=== PATIENT | male | born 1965 | race Hispanic/Latino ===

== ENCOUNTER 2022-05-21 22:17 | Inpatient (IN) | payer SELFPAY ==
[2022-05-21 22:47] LABS: #Basophils 0.1 thou/uL (0.0-0.2); #Eosinphils 0.1 thou/uL (0.0-0.7); #Lymphocytes 2.2 thou/uL (1.20-3.40); #Monocytes 0.6 thou/uL (0.11-0.59); #Neutrophils 5.4 thou/uL (1.40-6.50); %Basophils 0.7 % (0.0-1.0); %Eosinophils 1.8 % (0.0-10.0); %Lymphocytes 26.6 % (21.0-51.0); %Monocytes 6.8 % (0.0-10.0); %Neutrophils 64.2 % (42.0-75.0); Mean Corpuscular Hemoglobin 36.4 pg (27.0-31.0); Mean Platelet Volume 6.9 fL (7.4-10.4); Platelet Count 103 10x3/uL (130-400); RBC Distribution Width 13.9 % (11.5-14.5); Red Blood Cell (RBC) Count 3.58 mill/uL (4.70-6.10); White Blood Cell (WBC) Count 8.4 10x3/uL (4.8-10.8)
[2022-05-21 22:49] LABS: Bacteria/HPF None Seen HPF (None Seen); Bilirubin 1+ (Negative); Blood, Urine Negative (Negative); Clarity Turbid (Clear); Glucose, Urine (Dipstick) Normal (Negative); Ketone, Urine 10 mg/dL (Negative); Leukocyte 75 Leu/uL (Negative); Nitrite Negative (Negative); Protein, Urine (Dipstick) 50 mg/dL (Neg-Trace); RBC/HPF 0-3 HPF (0-3); Specific Gravity, Urine 1.037 (1.002-1.036); Urobilinogen 12 mg/dL (Less than 2)
[2022-05-21 23:04] LABS: ALT (SGPT) 19 U/L (8-55); AST (SGOT) 50 U/L (5-34); Albumin 2.4 g/dL (3.5-5.0); Alkaline Phosphatase 147 U/L (40-110); Anion Gap 14 mmol/L (10-20); BUN (Urea Nitrogen) 10 mg/dL (8.4-25.7); Calc. Creatinine Clearance 0 mL/min (70-130); Calcium 8.3 mg/dL (7.8-10.44); Carbon Dioxide 23 mmol/L (22-29); Chloride 105 mmol/L (98-107); Estimated GFR 108; Globulin 4.3 g/dL (2.4-3.5); Glucose 90 mg/dL (70-105); Potassium 3.7 mmol/L (3.5-5.1); Protein, Total 6.7 g/dL (6.0-8.3); Sodium 138 mmol/L (136-145)
[2022-05-22] MEDS ORDERED: Thiamine 100 MG TAB PO SCH (01:15)
[2022-05-22] MEDS ORDERED: Furosemide 20 MG TAB PO SCH (01:30)
[2022-05-22] MEDS ORDERED: Spironolactone 25 MG TAB PO SCH ×2 (01:30→12:45)
[2022-05-22] MEDS ORDERED: Furosemide 40 MG TAB ONE (01:49)
[2022-05-22 01:54] LABS: INR-International Normal Ratio 1.5; Prothrombin Time 18.4 sec (12.0-14.7)
[2022-05-22 01:55] LABS: PTT 37.2 sec (22.9-36.1)
[2022-05-22 02:03] LABS: Phosphorus 3.4 mg/dL (2.3-4.7)
[2022-05-22 02:05] LABS: Cardiac Risk 4.9 (Less than 4.5); Cholesterol 188 mg/dl (< 200 Desired); HDL Cholesterol 38 mg/dL (>60 Neg Risk); LDL Cholesterol, Calculated 130 mg/dL; Magnesium 1.9 mg/dL (1.6-2.6); Triglycerides 100 mg/dL (Less than 150)
[2022-05-22 02:25] LABS: HBCM Index 0.16 S/CO (0-0.79); HBSAg Index 0.31 S/CO (0-0.99); HIV (1/2) Antibody/Antigen Non-Reactive (NonReactive); HIV 1/2 INDEX 0.18 S/CO (<1.00); Hep A IgM AB Non-Reactive (NonReactive); Hep A IgM S/CO 0.33 S/CO (0-0.79); Hep B Surf Ag Non-Reactive S/CO (NonReactive); Hep C IgG Ab Non-Reactive (NonReactive); Hep C Index 0.17 S/CO (0-0.79); Hepatitis B Core IgM Abs Non-Reactive (NonReactive)
[2022-05-22 05:11] VITALS: BMI 31.4
[2022-05-22 05:42] LABS: Amphetamine Not Detected (NotDetected); Barbiturates Screen Not Detected (NotDetected); Benzodiazepine Screen Not Detected (NotDetected); Cocaine Metabolite Screen Not Detected (NotDetected); Methadone Not Detected (NotDetected); Methamphetamine Not Detected (NotDetected); Opiate Screen Not Detected (NotDetected); Oxycodone Screen Not Detected (NotDetected); Phencyclidine (PCP) Not Detected (NotDetected); THC/Cannabinoid Screen Not Detected (NotDetected); Tricyclic Screen Not Detected (NotDetected)
[2022-05-22 07:10] LABS: Hemoglobin 11.8 g/dL (14.0-18.0); Mean Corpuscular HGB CONC 33.4 g/dL (32.0-36.0); Mean Platelet Volume 7.2 fL (7.4-10.4); Platelet Count 88 10x3/uL (130-400); RBC Distribution Width 13.9 % (11.5-14.5); Red Blood Cell (RBC) Count 3.29 mill/uL (4.70-6.10); White Blood Cell (WBC) Count 5.6 10x3/uL (4.8-10.8)
[2022-05-22 07:11] LABS: #Eosinphils 0.1 thou/uL (0.0-0.7); #Lymphocytes 1.4 thou/uL (1.20-3.40); #Monocytes 0.4 thou/uL (0.11-0.59); #Neutrophils 3.7 thou/uL (1.40-6.50); %Basophils 0.6 % (0.0-1.0); %Eosinophils 2.6 % (0.0-10.0); %Lymphocytes 24.4 % (21.0-51.0); %Monocytes 7.4 % (0.0-10.0); %Neutrophils 65.1 % (42.0-75.0)
[2022-05-22 07:27] LABS: ALT (SGPT) 16 U/L (8-55); AST (SGOT) 44 U/L (5-34); Albumin 1.7 g/dL (3.5-5.0); Alkaline Phosphatase 119 U/L (40-110); Anion Gap 9 mmol/L (10-20); BUN (Urea Nitrogen) 9 mg/dL (8.4-25.7); Bilirubin, Total 3.6 mg/dL (0.2-1.2); Calc. Creatinine Clearance 186 mL/min (70-130); Calcium 7.9 mg/dL (7.8-10.44); Carbon Dioxide 26 mmol/L (22-29); Chloride 106 mmol/L (98-107); Estimated GFR 112; Globulin 3.8 g/dL (2.4-3.5); Glucose 88 mg/dL (70-105); Protein, Total 5.5 g/dL (6.0-8.3); Sodium 137 mmol/L (136-145)
[2022-05-22 08:06] LABS: MDiff Complete? YES; Platelet Morphology Comment Appears Decreased; Polychromasia SLIGHT = 2-3 cells (100X) (0-2/hpf)
[2022-05-22 09:31] LABS: Hemoglobin A1c 4.3 % (4.0-6.0)
[2022-05-22] MEDS: Folic Acid 1 MG TAB PO SCH (09:38)
[2022-05-22] MEDS: Thiamine 100 MG TAB PO SCH (09:38)
[2022-05-22] MEDS: Multivit, Therapeutic 1 TAB PO SCH (09:38)
[2022-05-22 11:02] LABS: Syphilis Antibody Nonreactive (Nonreactive); Syphilis Antibody Index 0.17 S/CO (<1.00 Non-Reactive)
[2022-05-22 11:50] LABS: Creatinine, Urine 87.53 mg/dL (63-166); Protein, Urine Random Quant Less than 10 mg/dL (1-14)
[2022-05-22] MEDS: Albumin 25% 25 GM/100 ML BOT IVPB SCH ×3 (12:26→23:10)
[2022-05-22] MEDS ORDERED: Furosemide 20 MG/2 ML VIAL SLOW IVP SCH (12:45)
[2022-05-23] MEDS: Albumin 25% 25 GM/100 ML BOT IVPB SCH (05:22)
[2022-05-23 06:37] LABS: #Eosinphils 0.2 thou/uL (0.0-0.7); #Lymphocytes 1.6 thou/uL (1.20-3.40); #Monocytes 0.4 thou/uL (0.11-0.59); #Neutrophils 3.1 thou/uL (1.40-6.50); %Basophils 0.8 % (0.0-1.0); %Eosinophils 4.2 % (0.0-10.0); %Monocytes 7.6 % (0.0-10.0); %Neutrophils 57.3 % (42.0-75.0); Hemoglobin 10.1 g/dL (14.0-18.0); Mean Corpuscular HGB CONC 34.1 g/dL (32.0-36.0); Mean Corpuscular Hemoglobin 36.5 pg (27.0-31.0); Platelet Count 80 10x3/uL (130-400); RBC Distribution Width 13.7 % (11.5-14.5); Red Blood Cell (RBC) Count 2.77 mill/uL (4.70-6.10); White Blood Cell (WBC) Count 5.4 10x3/uL (4.8-10.8)
[2022-05-23 06:57] LABS: Iron 94 ug/dL (65-175); Iron Binding Capacity, Total 85 mcg/dL (261-462)
[2022-05-23 06:58] LABS: ALT (SGPT) 12 U/L (8-55); AST (SGOT) 32 U/L (5-34); Albumin 2.6 g/dL (3.5-5.0); Alkaline Phosphatase 92 U/L (40-110); Anion Gap 9 mmol/L (10-20); BUN (Urea Nitrogen) 8 mg/dL (8.4-25.7); Bilirubin, Total 3.2 mg/dL (0.2-1.2); Calc. Creatinine Clearance 183 mL/min (70-130); Calcium 8.2 mg/dL (7.8-10.44); Carbon Dioxide 26 mmol/L (22-29); Chloride 106 mmol/L (98-107); Estimated GFR 112; Globulin 2.7 g/dL (2.4-3.5); Glucose 78 mg/dL (70-105); Iron 94 ug/dL (65-175); Iron Binding Capacity, Total 83 mcg/dL (261-462); Potassium 3.4 mmol/L (3.5-5.1); Protein, Total 5.3 g/dL (6.0-8.3); Sodium 138 mmol/L (136-145)
[2022-05-23] MEDS: Multivit, Therapeutic 1 TAB PO SCH (09:44)
[2022-05-23] MEDS: Folic Acid 1 MG TAB PO SCH (09:44)
[2022-05-23] MEDS: Thiamine 100 MG TAB PO SCH (09:44)
[2022-05-23] MEDS: Furosemide 20 MG TAB PO SCH (09:44)
[2022-05-23] MEDS: Spironolactone 25 MG TAB PO SCH (09:45)
[2022-05-23 14:00] LABS: ANA Symphony (Qualitative) Equivocal: See Note (Negative); ANA Symphony (Quantitative) 0.9 Ratio (< 0.7 Negative); EliA Vaculitis New Method **** NEW METHOD ****; Mitochondrial Ab 2.1 U/mL (<4 Negative)
[2022-05-23] MEDS ORDERED: Lidocaine 1% PF 5 ML VIAL ONE (14:20)
[2022-05-23] MEDS ORDERED: Sodium Bicarbonate 2.5 MEQ/5 ML VIAL ONE (14:20)
[2022-05-23 15:42] LABS: RBC Count-Automated (BF) 0 /cu.mm; WBC/Nucleated-Auto (BF) 335 /cu.mm
[2022-05-23 16:43] LABS: BF Color Yellow; Body Fluid Source Ascites Body Fluid; Clarity Clear (Clear); Tube # EDTA
[2022-05-23 16:44] LABS: BF Segmented Neutrophils 17 %; Cell Count Non Hematic 60 %; Lymphocytes 23 %
[2022-05-24] MEDS: Thiamine 100 MG TAB PO SCH (08:31)
[2022-05-24] MEDS: Multivit, Therapeutic 1 TAB PO SCH (08:31)
[2022-05-24] MEDS: Furosemide 20 MG TAB PO SCH (08:31)
[2022-05-24] MEDS: Folic Acid 1 MG TAB PO SCH (08:31)
[2022-05-24] MEDS: Spironolactone 25 MG TAB PO SCH (08:32)
[2022-05-24 08:48] LABS: ALT (SGPT) 12 U/L (8-55); AST (SGOT) 33 U/L (5-34); Albumin 2.1 g/dL (3.5-5.0); Alkaline Phosphatase 93 U/L (40-110); Anion Gap 8 mmol/L (10-20); BUN (Urea Nitrogen) 7 mg/dL (8.4-25.7); Bilirubin, Total 3.3 mg/dL (0.2-1.2); Calc. Creatinine Clearance 195 mL/min (70-130); Calcium 8.1 mg/dL (7.8-10.44); Carbon Dioxide 26 mmol/L (22-29); Chloride 108 mmol/L (98-107); Estimated GFR 114; Globulin 2.6 g/dL (2.4-3.5); Glucose 78 mg/dL (70-105); Potassium 3.7 mmol/L (3.5-5.1); Protein, Total 4.7 g/dL (6.0-8.3); Sodium 138 mmol/L (136-145)
[2022-05-24 09:27] LABS: #Eosinphils 0.2 thou/uL (0.0-0.7); #Monocytes 0.5 thou/uL (0.11-0.59); #Neutrophils 3.3 thou/uL (1.40-6.50); %Basophils 0.8 % (0.0-1.0); %Eosinophils 3.8 % (0.0-10.0); %Lymphocytes 33.4 % (21.0-51.0); %Monocytes 8.1 % (0.0-10.0); %Neutrophils 53.9 % (42.0-75.0); Hemoglobin 10.6 g/dL (14.0-18.0); Mean Corpuscular Hemoglobin 36.6 pg (27.0-31.0); Mean Platelet Volume 7.4 fL (7.4-10.4); Platelet Count 72 10x3/uL (130-400); RBC Distribution Width 13.8 % (11.5-14.5); Red Blood Cell (RBC) Count 2.89 mill/uL (4.70-6.10)
[2022-05-24 17:27] VITALS: BP 96/63; TEMP 97.8
== END 2022-05-24 17:40 | disposition home or self-care (01) | DRG 434 ==
LOC: ERS 22:17 → ERHOLD 05-22 00:14 → INTOOBSV 05-22 00:14 → T4-A 05-22 05:08 → OBSVTOIN 05-22 17:13
PROVIDERS: ADMIT Family Medicine; ATTEND Family Medicine
PROC: 0W9G3ZZ Drainage of Peritoneal Cavity, Percutaneous Approach (ICD-10-PCS; principal; 2022-05-23)
DX: K70.31 Alcoholic cirrhosis of liver with ascites (principal); Z20.822 Contact with and (suspected) exposure to COVID-19; D69.6 Thrombocytopenia, unspecified; F17.210 Nicotine dependence, cigarettes, uncomplicated
CPT/HCPCS: 36415; 49083; 76705; 80053; 80061; 80074; 80306; 80307; 81003; 81015; 81256; 82042; 82103; 82105; 82390; 82570; 82728; 83036; 83516; 83540; 83550; 83735; 83880; 84100; 84156; 84157; 84484; 85025; 85060; 85610; 85730; 86015; 86038; 86225; 86780; 87070; 87205; 87389; 88112; 88305; 89051; 93005; 94760; 96374; 96375; G0378; J1940; P9047

== ENCOUNTER 2022-08-13 17:37 | Inpatient (IN) | payer SELFPAY ==
[2022-08-13 18:43] LABS: #Basophils 0.1 thou/uL (0.0-0.2); #Eosinphils 0.1 thou/uL (0.0-0.7); #Monocytes 0.7 thou/uL (0.11-0.59); #Neutrophils 5.8 thou/uL (1.40-6.50); %Basophils 0.7 % (0.0-1.0); %Eosinophils 1.1 % (0.0-10.0); %Lymphocytes 20.7 % (21.0-51.0); %Monocytes 7.8 % (0.0-10.0); %Neutrophils 69.1 % (42.0-75.0); Hemoglobin 12.4 g/dL (14.0-18.0); Mean Corpuscular HGB CONC 35.6 g/dL (32.0-36.0); Mean Corpuscular Volume 101.2 fl (78.0-98.0); Mean Platelet Volume 8.8 fL (7.4-10.4); Platelet Count 112 10x3/uL (130-400); Red Blood Cell (RBC) Count 3.44 mill/uL (4.70-6.10); White Blood Cell (WBC) Count 8.3 10x3/uL (4.8-10.8)
[2022-08-13 18:57] LABS: ALT (SGPT) 27 U/L (8-55); AST (SGOT) 56 U/L (5-34); Alkaline Phosphatase 192 U/L (40-110); Anion Gap 9 mmol/L (10-20); BUN (Urea Nitrogen) 13 mg/dL (8.4-25.7); Calc. Creatinine Clearance 0 mL/min (70-130); Calcium 8.4 mg/dL (7.8-10.44); Carbon Dioxide 25 mmol/L (22-29); Chloride 101 mmol/L (98-107); Estimated GFR 103; Globulin 4.3 g/dL (2.4-3.5); Glucose 149 mg/dL (70-105); Potassium 3.9 mmol/L (3.5-5.1); Protein, Total 6.3 g/dL (6.0-8.3); Sodium 131 mmol/L (136-145)
[2022-08-13 19:01] LABS: Acetaminophen Less than 10 mcg/mL (10.0-30.0); Alcohol Less than 10.0 mg/dL (Less than 10); Lipase 72 U/L (8-78); Salicylate Less than 8.0 mg/dL (15.0-30.0)
[2022-08-13] MEDS ORDERED: Albumin 25% 25 GM/100 ML BOT IVPB SCH (22:30)
[2022-08-13] MEDS ORDERED: Lactulose 10 GM/15 ML Oral Solution PR SCH (22:30)
[2022-08-13 23:35] LABS: Lactic Acid 2.6 mmol/L (0.5-2.2)
[2022-08-13] MEDS ORDERED: Ondansetron PF 4 MG/2 ML Vial IVP PRN (23:45)
[2022-08-13] MEDS ORDERED: Ondansetron ODT 4 MG TAB SL PRN (23:45)
[2022-08-13] MEDS ORDERED: Acetaminophen 325 MG TAB PO PRN (23:45)
[2022-08-14 00:12] VITALS: BMI 40.6
[2022-08-14] MEDS ORDERED: Acetaminophen 500 MG TAB PO PRN (03:42)
[2022-08-14] MEDS ORDERED: cefTRIAXone\\ROCEPHIN 1 GM in Sodium Chloride 0.9% 100 ML IVPB SCH (04:00)
[2022-08-14] MEDS: Furosemide 20 MG/2 ML VIAL SLOW IVP SCH ×2 (04:45→14:32)
[2022-08-14 06:23] LABS: #Basophils 0.1 thou/uL (0.0-0.2); #Eosinphils 0.1 thou/uL (0.0-0.7); #Monocytes 0.7 thou/uL (0.11-0.59); #Neutrophils 5.6 thou/uL (1.40-6.50); %Basophils 0.9 % (0.0-1.0); %Eosinophils 1.4 % (0.0-10.0); %Lymphocytes 19.3 % (21.0-51.0); %Monocytes 8.5 % (0.0-10.0); %Neutrophils 69.3 % (42.0-75.0); Hemoglobin 12.5 g/dL (14.0-18.0); Mean Corpuscular HGB CONC 34.2 g/dL (32.0-36.0); Mean Corpuscular Hemoglobin 35.7 pg (27.0-31.0); Mean Corpuscular Volume 104.3 fl (78.0-98.0); Mean Platelet Volume 9.1 fL (7.4-10.4); Platelet Count 95 10x3/uL (130-400); RBC Distribution Width 15.1 % (11.5-14.5); White Blood Cell (WBC) Count 8.1 10x3/uL (4.8-10.8)
[2022-08-14 06:39] LABS: Anion Gap 11 mmol/L (10-20); BUN (Urea Nitrogen) 10 mg/dL (8.4-25.7); Calc. Creatinine Clearance 229 mL/min (70-130); Calcium 8.1 mg/dL (7.8-10.44); Carbon Dioxide 22 mmol/L (22-29); Chloride 105 mmol/L (98-107); Estimated GFR 111; Glucose 116 mg/dL (70-105); Potassium 3.9 mmol/L (3.5-5.1); Sodium 134 mmol/L (136-145)
[2022-08-14] MEDS: Folic Acid 1 MG TAB PO SCH (08:12)
[2022-08-14] MEDS: Thiamine 100 MG TAB PO SCH (08:12)
[2022-08-14] MEDS: Multivitamin W/ Minerals 1 TAB PO SCH (08:12)
[2022-08-14] MEDS: Spironolactone 25 MG TAB PO SCH (08:12)
[2022-08-14 10:10] LABS: INR-International Normal Ratio 1.7; Prothrombin Time 20.4 sec (12.0-14.7)
[2022-08-14] MEDS ORDERED: Lidocaine 1% PF 5 ML VIAL ONE (10:33)
[2022-08-14] MEDS ORDERED: Sodium Bicarbonate 2.5 MEQ/5 ML VIAL ONE (10:33)
[2022-08-14 14:31] LABS: RBC Count-Automated (BF) 615 /cu.mm; WBC/Nucleated-Auto (BF) 68 /cu.mm
[2022-08-14 14:35] LABS: Body Fluid Source Ascites Body Fluid; Clarity Hazy (Clear); Tube # EDTA
[2022-08-14 14:36] LABS: BF Color Yellow
[2022-08-14 15:09] LABS: BF Segmented Neutrophils 14 %; Cell Count Non Hematic 56 %; Lymphocytes 30 %
[2022-08-14] MEDS ORDERED: Meropenem 1 GM in Sodium Chloride 0.9% 100 ML IVPB SCH (21:00)
[2022-08-15 05:54] LABS: #Basophils 0.1 thou/uL (0.0-0.2); #Eosinphils 0.1 thou/uL (0.0-0.7); #Monocytes 0.8 thou/uL (0.11-0.59); #Neutrophils 5.4 thou/uL (1.40-6.50); %Basophils 0.7 % (0.0-1.0); %Eosinophils 1.2 % (0.0-10.0); %Lymphocytes 20.5 % (21.0-51.0); %Monocytes 9.9 % (0.0-10.0); %Neutrophils 67.3 % (42.0-75.0); Hemoglobin 11.8 g/dL (14.0-18.0); Mean Corpuscular HGB CONC 34.5 g/dL (32.0-36.0); Mean Corpuscular Hemoglobin 34.9 pg (27.0-31.0); Mean Corpuscular Volume 101.2 fl (78.0-98.0); Mean Platelet Volume 8.9 fL (7.4-10.4); Red Blood Cell (RBC) Count 3.38 mill/uL (4.70-6.10); White Blood Cell (WBC) Count 8.1 10x3/uL (4.8-10.8)
[2022-08-15] MEDS ORDERED: Meropenem 1 GM in Sodium Chloride 0.9% 100 ML IVPB SCH (06:00)
[2022-08-15 06:02] LABS: Platelet Count 99 10x3/uL (130-400)
[2022-08-15 06:13] LABS: Anion Gap 6 mmol/L (10-20); BUN (Urea Nitrogen) 11 mg/dL (8.4-25.7); Calc. Creatinine Clearance 206 mL/min (70-130); Carbon Dioxide 24 mmol/L (22-29); Chloride 103 mmol/L (98-107); Estimated GFR 107; Glucose 129 mg/dL (70-105); Potassium 3.7 mmol/L (3.5-5.1); Sodium 129 mmol/L (136-145)
[2022-08-15] MEDS: Furosemide 20 MG/2 ML VIAL SLOW IVP SCH ×2 (06:34→14:55)
[2022-08-15] MEDS: Spironolactone 25 MG TAB PO SCH ×2 (08:19→09:34)
[2022-08-15] MEDS: Folic Acid 1 MG TAB PO SCH ×2 (08:19→09:34)
[2022-08-15] MEDS: Multivitamin W/ Minerals 1 TAB PO SCH ×2 (08:20→09:34)
[2022-08-15] MEDS: Thiamine 100 MG TAB PO SCH ×2 (08:20→09:34)
[2022-08-15] MEDS ORDERED: fentaNYL 50 mcg/mL 1 mL Vial ONE (08:21)
[2022-08-15] MEDS ORDERED: PROPOFOL 200 MG/20 ML VIAL ONE (08:30)
[2022-08-15] MEDS ORDERED: Lidocaine 1% PF 5 ML VIAL ONE (08:30)
[2022-08-16 05:59] LABS: Anion Gap 8 mmol/L (10-20); BUN (Urea Nitrogen) 16 mg/dL (8.4-25.7); Calc. Creatinine Clearance 181 mL/min (70-130); Carbon Dioxide 23 mmol/L (22-29); Chloride 103 mmol/L (98-107); Estimated GFR 103; Glucose 138 mg/dL (70-105); Potassium 4.1 mmol/L (3.5-5.1); Sodium 130 mmol/L (136-145)
[2022-08-16 06:07] LABS: #Basophils 0.1 thou/uL (0.0-0.2); #Eosinphils 0.1 thou/uL (0.0-0.7); #Monocytes 1.1 thou/uL (0.11-0.59); #Neutrophils 5.3 thou/uL (1.40-6.50); %Basophils 0.7 % (0.0-1.0); %Eosinophils 1.5 % (0.0-10.0); %Lymphocytes 24.9 % (21.0-51.0); %Neutrophils 60.6 % (42.0-75.0); Hemoglobin 11.4 g/dL (14.0-18.0); Mean Corpuscular HGB CONC 34.3 g/dL (32.0-36.0); Mean Corpuscular Hemoglobin 35.1 pg (27.0-31.0); Mean Corpuscular Volume 102.2 fl (78.0-98.0); Mean Platelet Volume 9.1 fL (7.4-10.4); RBC Distribution Width 14.9 % (11.5-14.5); Red Blood Cell (RBC) Count 3.25 mill/uL (4.70-6.10); White Blood Cell (WBC) Count 8.8 10x3/uL (4.8-10.8)
[2022-08-16 06:14] LABS: Platelet Count 95 10x3/uL (130-400)
[2022-08-16] MEDS: Furosemide 20 MG/2 ML VIAL SLOW IVP SCH (06:21)
[2022-08-16 08:09] VITALS: TEMP 98.3
[2022-08-16] MEDS: Multivitamin W/ Minerals 1 TAB PO SCH (08:56)
[2022-08-16] MEDS: Spironolactone 25 MG TAB PO SCH (08:56)
[2022-08-16] MEDS: Folic Acid 1 MG TAB PO SCH (08:57)
[2022-08-16] MEDS: Thiamine 100 MG TAB PO SCH (08:57)
[2022-08-16] MEDS ORDERED: Folic Acid 1 MG TAB PO SCH (09:00)
[2022-08-16] MEDS ORDERED: Furosemide 20 MG TAB PO SCH (09:00)
[2022-08-16] MEDS ORDERED: Multivit, Therapeutic 1 TAB PO SCH (09:00)
[2022-08-16] MEDS ORDERED: Thiamine 100 MG TAB PO SCH (09:00)
[2022-08-16 12:05] VITALS: BP 132/90
== END 2022-08-16 13:08 | disposition home or self-care (01) | DRG 433 ==
LOC: ERS 17:37 → T4-B 22:04 → OBSVTOIN 08-14 11:21
PROVIDERS: ADMIT Internal Medicine; ATTEND Internal Medicine
PROC: 0W9G30Z Drainage of Peritoneal Cavity with Drainage Device, Percutaneous Approach (ICD-10-PCS; principal; 2022-08-14)
PROC: 0DJ08ZZ Inspection of Upper Intestinal Tract, Via Natural or Artificial Opening Endoscopic (ICD-10-PCS; 2022-08-15)
DX: K70.31 Alcoholic cirrhosis of liver with ascites (principal); E87.20 Acidosis, unspecified; I85.10 Secondary esophageal varices without bleeding; K76.6 Portal hypertension; K76.82 Hepatic encephalopathy; D69.6 Thrombocytopenia, unspecified; E88.09 Other disorders of plasma-protein metabolism, not elsewhere classified; K31.89 Other diseases of stomach and duodenum; F10.10 Alcohol abuse, uncomplicated; F19.90 Other psychoactive substance use, unspecified, uncomplicated; Z79.84 Long term (current) use of oral hypoglycemic drugs; Z79.01 Long term (current) use of anticoagulants; Z87.891 Personal history of nicotine dependence; Z79.899 Other long term (current) drug therapy
CPT/HCPCS: 36415; 49083; 70450; 80048; 80053; 80307; 82140; 83605; 83690; 84443; 84484; 85025; 85060; 85610; 87070; 87205; 89051; 93005; 96374; 96375; 96376; G0378; J0696; J1940; J2704; J3010; J3490; P9047